=== PATIENT | female | born 1985 | race Caucasian/White ===

== ENCOUNTER → 2019-08-26 | Day surgery (SDC) | payer BC ==
[~2019-08-26] MED LIST: Acetaminophen 500 MG Tab PO ONE; Acetaminophen/HYDROcodone 325-5 MG Tab PO ONE; Bupivacaine 0.5%/EPINEPHrine 1:200,000 50 ML MDV ONE; Celecoxib 200 MG Cap PO ONE; Dexamethasone 4 MG/ML SDV ONE; Dextrose 5%-Lactated Ringers 1,000 ML IV SCH; Glycopyrrolate 0.2 MG/ML 5 ML MDV ONE; Ketorolac 60 MG/2 ML SDV ONE; Lactated Ringers 1,000 ML ONE; Meropenem 500 MG SDV ONE; Neostigmine Methylsulfate 1 MG/ML 5 ML Syringe ONE; Ondansetron 4 MG/2 ML SDV IVPUSH ONE; Ondansetron 4 MG/2 ML SDV ONE; Propofol 200 MG/20 ML SDV ONE; Rocuronium 50 MG/5 ML Vial ONE; Ropivacaine 32 ML, dexAMETHasone 8 MG, EPINEPHrine 0.4 MG, Sodium Chloride 0.9% 45.6 ML NERVRT SCH; ceFAZolin 2 GM in Premix Bag 1 BAG IV ONE; fentaNYL 250 MCG/5 ML SDV ONE
[2019-08-26 11:18] VITALS: BP 95/42; PULSE 45
--- NOTE | 2019-08-27 17:35 | OR ---
DATE OF PROCEDURE: 08/26/2019 SURGEON: Casimiro Charles MD PREOPERATIVE DIAGNOSIS: Umbilical hernia. POSTOPERATIVE DIAGNOSIS: Incarcerated umbilical hernia. OPERATIVE PROCEDURES: Diagnostic laparoscopy with, 1. Repair of incarcerated umbilical hernia with mesh (44503). 2. Placement of Interceed mesh to limit adhesion formation between pelvic and abdominal cintron and underlying viscera (60454). ANESTHESIA: General. EMPLOYEE RELATIONS DIRECTOR: Tamia Ulrich PA-C INDICATIONS FOR PROCEDURE: This is a 34-year-old presenting with a recently diagnosed umbilical hernia. This at times had become incarcerated and quite painful. Plan is to proceed with a laparoscopic or if necessary open repair of umbilical hernia with mesh. Potential risks including bleeding, infection, injury to underlying viscera, possibility of mesh becoming infected, or the hernia recurring were reviewed, and the patient wishes to proceed. DETAILS OF PROCEDURE: The patient was taken to the operating room and placed in a supine position. After general endotracheal anesthesia was induced, a Sotelo catheter was inserted, which was removed at the end of the procedure, and the abdomen was prepped and draped. In the left lateral abdominal wall, a transverse incision was made and the peritoneal cavity entered under direct vision with an Optiview trocar, inflated to 15 mmHg with CO2. The laparoscope was reinserted and no underlying trocar insertion site injuries were seen. Following this, two 5 mm trocars, one in the left lower quadrant and one in the left upper quadrant, were placed. The hernia was then identified. This had some incarcerated preperitoneal fat within it. The peritoneum overlying this was incised and using external pressure, the hernia was reduced and the fatty contents along with hernia sac were then excised using Harmonic scalpel and sent as a separate specimen. The falciform ligament was then taken down a few centimeters from the site of the hernia to allow a more satisfactory mesh onlay, not being distracted from the main abdominal wall by the falciform ligament. Then, a Ventrio ST hernia patch with a circular configuration, measuring 11 cm in diameter was selected. A single stitch was placed on the polypropylene side of the mesh and it was soaked in antibiotic-containing saline solution and placed in intraperitoneal location. A tiny stab wound just below the umbilicus was made and the suture was then pulled up, thus bringing the mesh up against the abdominal wall. The mesh was then fixed circumferentially with absorbable tacking screws. Good fixation was then confirmed. This provided very wide coverage away from the hernia as the defect in this case was only around 5 to 8 mm. To limit adhesion formation between the mesh and the underlying abdominal wall as well as the surrounding pelvic and abdominal cintron per se, Interceed mesh was placed underneath the mesh and from there down toward the pelvis. Following this, then the area was irrigated once again with antibiotic-containing saline solution, and the trocars were then sequentially removed. The fascia at the 12 mm site was closed with 0 Vicryl stitch and the skin with 4-0 Vicryl skin stitch. Bilateral transversus abdominis plane blocks were then placed intraoperatively and the wound was anesthetized with 0.5% Marcaine mixed with lidocaine. The patient was taken to the recovery room in satisfactory condition. There were no evident complications. ADDENDUM Physician ice cream freezer assistant, Tamia Ulrich, played an essential role in assisting in this case; helping to position the patient, retract structures as needed, as well as suturing and cutting sutures when indicated. Her presence improved patient safety and decreased the operative time. Casimiro Charles MD /[id number] DARIUS
== END ==
LOC: JP.SDS 06:22
PROVIDERS: ATTEND Surgery
DX: K42.0 Umbilical hernia with obstruction, without gangrene (principal); Z88.0 Allergy status to penicillin
CPT/HCPCS: 36415; 49653; 80053; 81025; 85027; A9270; C1713; C1781; J0171; J0690; J1100; J1885; J2020; J2185; J2405; J2704; J2710; J2795; J3010; J3490; J7050; J7120; J7121